=== PATIENT | male | born 1995 | race Caucasian/White ===

== ENCOUNTER 2016-02-27 15:33 | Emergency (ER) | payer OTHER ==
[~2016-02-27] VITALS: Ht 167.6 cm; Wt 105.0 kg
[2016-02-27 16:08] VITALS: BP 129/74; PULSE 87; RESP 20; TEMP 98.1; O2SAT 100
--- NOTE | 2016-02-27 16:36 | PD ---
HPI Chief Complaint: Psychiatric Symptoms Time Seen by Provider: 16:33 Travel History International Travel<30 days: No Contact w/Intl Traveler<30days: No Traveled to known affect area: No History of Present Illness HPI 20-year-old male that presents to the ED for evaluation of psych. Patient was [place] acted by the [facility] secondary to drug overdose. Apparently patient overdosed of her fentanyl which he uses recreationally with friend. Patient apparently at the previous facility was very agitated and will not collaborate with staff so he was Plaza acted for his safety. Patient had blood work and was deemed medically clear and he was discharged from the [facility] under a Plaza act and brought here by police. Patient did come here with paperwork from the [facility] to shows that he had blood work that was essentially unremarkable. Patient denies any psychiatric illness. Patient denies ever having any homicidal or suicidal ideation. Patient denies using fentanyl. Patient denies any drug abuse. Patient denies any alcohol abuse. No allergies to medication. No chest pain or shortness of breath. Other medical problems. [facility] Past Medical History Medical History: Denies Significant Hx Tetanus Vaccination: < 5 Years Past Surgical History Surgical History: No Previous Surgery Social History Alcohol Use: No Tobacco Use: Yes Substance Use: No Allergies-Medications (Allergen,Severity, Reaction): Coded Allergies: No Known Allergies (Unverified , 02/27/16) Reported Meds & Prescriptions Reported Meds & Active Scripts Active No Active Prescriptions or Reported Medications Review of Systems Except as stated in HPI: all other systems reviewed are Neg Physical Exam Narrative GENERAL: SKIN: Warm and dry. HEAD: Atraumatic. Normocephalic. EYES: Pupils equal and round. No scleral icterus. No injection or drainage. ENT: No nasal bleeding or discharge. Mucous membranes pink and moist. NECK: Trachea midline. No JVD. CARDIOVASCULAR: Regular rate and rhythm. No murmurs, S3, S4. RESPIRATORY: No accessory muscle use. Clear to auscultation. Breath sounds equal bilaterally. GASTROINTESTINAL: Abdomen soft, non-tender, nondistended. Hepatic and splenic margins not palpable. MUSCULOSKELETAL: Extremities without clubbing, cyanosis, or edema. No obvious deformities. NEUROLOGICAL: Awake and alert. No obvious cranial nerve deficits. Motor grossly within normal limits. Five out of 5 muscle strength in the arms and legs. Normal speech. PSYCHIATRIC: Appropriate mood and affect; insight and judgment normal. Data Data Last Documented VS Vital Signs Date Time Temp Pulse Resp B/P Pulse Ox O2 Delivery O2 Flow Rate FiO2 02/27/16 16:08 98.1 87 20 129/74 100 Orders Drug Screen, Random Urine (02/27/16 16:15) Psych Screen (02/27/16 16:15) MDM Medical Decision Making Medical Screen Exam Complete: Yes Emergency Medical Condition: Yes Medical Record Reviewed: Yes Differential Diagnosis Depression versus suicidal ideation versus anxiety versus adjustment disorder versus mood disorder versus bipolar disorder versus schizophrenia versus paranoid disorder versus psychosis versus substance abuse versus alcohol abuse versus alcohol induced psychosis versus homicidality addition versus cutting versus personality disorder Narrative Course 20-year-old male that presents to the ED for evaluation of psych. Patient was properly examined and was found to have signs and symptoms consistent what appears to be psychiatric illness. Patient was medically clear at a previous facility. Patient was medically cleared here. Patient is okay to be seen by psych. Mental health screening was discussed with the patient. Diagnosis Primary Impression: Substance abuse Scripts No Active Prescriptions or Reported Meds Florian Hinton Feb 27, 2016 16:36
[2016-02-27 17:20] LABS: AMPHETAMINE, URINE NEG (NEG); BARBITURATES, URINE NEG (NEG); COCAINE, URINE NEG (NEG)
[2016-02-27 17:53] VITALS: BP 132/84; PULSE 90; RESP 17; TEMP 98.8; O2SAT 95
[2016-02-28 02:23] VITALS: BP 126/74; PULSE 79; RESP 19; O2SAT 99
[2016-02-28 06:07] VITALS: BP 126/78; PULSE 82; RESP 18; O2SAT 98
--- NOTE | 2016-02-28 07:56 | MB ---
cc: SALOMON LAWLER MD DATE OF CONSULTATION: 02/28/2016 PHYSICIAN REQUESTING CONSULTATION Emergency Department REASON FOR CONSULTATION Plaza Act. HISTORY OF PRESENT ILLNESS Mr. Shipman is a 20-year-old male with no reported past psychiatric history who presents under a [place] Act from [facility] Department alleging that the officer responded to a possible overdose and found Ms. Shipman initially unresponsive. He finally awoke and a friend on the scene said that the patient had snorted fentanyl. It seems from the Plaza Act that the patient was primarily placed under the Plaza Act out of concerns for his physical safety secondary to the sequelae of opiate intoxication. Reviewing the electronic medical record, it appears this is the patient's first visit to [place]. Patient is seen and examined. Chart reviewed. Case discussed with nurse in the J-pod. On my examination this morning the patient is clinically sober. He reports that the fentanyl ingestion last night was purely recreational. He adamantly denies any suicidal intent in the ingestion. He denies any suicidal ideation, intent or plan at this time and says that he wants to live to make a lot of money to make his family and friends proud of him. He denies any suicidal ideation, intent or plan. He denies any homicidal ideation, intent or plan. He denies any issues with low mood or elevated mood and I can elicit no depressive or hypomanic / manic symptoms. He denies any audiovisual hallucinations. I can elicit no delusional beliefs including but not limited to paranoia, ideas of reference, thought insertion or withdrawal or grandiosity. The remainder of the psychiatric ROS is negative. The patient is requesting discharge from the psychiatric emergency room this morning. With the patient's permission, I did obtain collateral from the patient's roommate, Petey Padilla, at [phone]. Mr. Padilla confirms that he was at the scene last night and reports that the fentanyl ingestion was recreational. He has absolutely no concerns about the patient being suicidal. He has absolutely no concerns about the patient being a risk of harm to himself or others. PAST PSYCHIATRIC HISTORY The patient denies. He denies a history of psychiatric diagnosis. He denies a history of inpatient or outpatient psychiatric treatment. He denies a history of suicide attempts. He is on no psychotropic medications. FAMILY HISTORY The patient denies family history of serious mental illness, substance use disorder or suicide. CHEMICAL DEPENDENCY HISTORY The patient admits to occasional use of cannabis. He also has been using fentanyl "off and on for the last month." He says that he has maybe used it four times in total. He snorts it. He denies any history of IV drug use. Denies any use of benzos or alcohol or other drugs. SOCIAL HISTORY The patient reports that he lives with two roommates. He says that he has some college education and works in on[employer]. He is single and has no children. He denies any active legal issues. He denies a history of drug crime or violent crime. Denies any history. Denies any access to guns or firearms. Denies any catholic or spiritual beliefs. PAST MEDICAL HISTORY The patient denies any medical issues. REVIEW OF SYSTEMS No reported headache, vision or hearing changes, chest pain, shortness of breath, bowel or bladder issues. No other physical complaints. PHYSICAL EXAMINATION The physical examination was completed in the emergency room by the ER staff and the patient was medically cleared. On my examination today, the patient appears to be in no acute physical distress. No signs of opiate intoxication or withdrawal. In particular no lacrimation, rhinorrhea, piloerection, myosis or mydriasis or altered mental status. No other abnormal motor movements noted. Labs and vital signs reviewed. I note that the patient's urine toxicology is negative, but it is also true that not all of the opiates register in urine drug testing and in particular this screen notes that a negative result does not preclude the presence of a particular drug at a lower concentration than the cut point of dissection. MENTAL STATUS EXAMINATION The patient is in a hospital gown. He is well-groomed. He is awake and alert, and oriented x3. No evidence of delirium. No abnormal motor movements noted. Speech is within normal limits for rate, tone and volume. Language and fund of knowledge seem adequate and appropriate for age. Mood is fair and affect is euthymic, full and reactive. Thought process linear. No loosening of associations. No evident delusions. Denies audiovisual hallucinations. Denies suicidal or homicidal ideation. Insight and judgment are fair in general, but likely poor with respect to the substance use issues. ASSESSMENT AND PLAN 1. Opiate abuse, F11.10. This is a 20-year-old male with no psychiatric history who presents under a Plaza Act following what apparently was recreational fentanyl ingestion. On my examination this morning, the patient is clinically sober and denying any suicidal ideation, intent or plan. He denies any homicidal ideation. I can detect no unstable mood, anxiety or psychotic disorder in this patient at this time. I have obtained reassuring collateral from the patient's friend. Weighing the acute, chronic, and protective factors and based on the available evidence, I log cooker to a reasonable degree of medical certainty that the patient is at low imminent risk of harm to self or others from mental illness as defined under the Plaza Act and his level of function is adequate for outpatient care. I have lifted the Plaza Act. I have strongly recommended that the patient consider chemical dependency evaluation and treatment but he is unfortunately precontemplative with regards to his substance use. I have encouraged him to consider seeking the same in the future. We will provide the appropriate referrals. I have counseled the patient to return to the psychiatric emergency room for any concerning psychiatric symptoms. The patient is psychiatrically clear for discharge from the ED. Thank you very much for this consultation. Salomon HALEY /7:06 AM /7:37 AM KATIANA
== END 2016-02-28 09:46 | disposition home or self-care (01) ==
LOC: NEDAMB 15:33 → NEPJ 02-28 09:46
DX: F11.10 Opioid abuse, uncomplicated (principal)
CPT/HCPCS: 80307; 99284

== ENCOUNTER 2016-02-28 20:46 | Emergency (ER) | payer OTHER ==
[~2016-02-28] VITALS: Ht 167.6 cm; Wt 107.0 kg
[2016-02-28 20:48] VITALS: BP 127/83; PULSE 98; RESP 18; TEMP 98.9; O2SAT 91
[2016-02-28] MEDS ORDERED: SODIUM CHLOR 0.9% 1000 ML INJ 1,000 ML IV SCH (20:59)
[2016-02-28] MEDS ORDERED: SODIUM CHLORIDE 0.9% FLUSH 5 ML FLUSH IVF PRN (21:00)
[2016-02-28 21:41] LABS: AUTOMATED NEUTROPHIL # 6.8 TH/MM3 (1.8-7.7); BASOPHIL # 0.1 TH/MM3 (0-0.2); BASOPHIL % 0.5 % (0.0-2.0); EOSINOPHIL # 0.1 TH/MM3 (0-0.4); EOSINOPHIL % 1.3 % (0.0-4.0); HEMATOCRIT 43.6 % (39.0-51.0); HEMO FLAGS DIFF FINAL; LYMPH % 27.7 % (9.0-44.0); MEAN CELL VOLUME 84.3 FL (80.0-100.0); MEAN CORPUSCULAR HEMOGLOBIN 28.3 PG (27.0-34.0); MEAN CORPUSCULAR HGB CONC 33.6 % (32.0-36.0); MONO % 7.1 % (0.0-8.0); NEUT % 63.4 % (16.0-70.0); PLATELET COUNT 213 TH/MM3 (150-450); RED BLOOD COUNT 5.18 MIL/MM3 (4.50-5.90); RED CELL DISTRIBUTION WIDTH 14.5 % (11.6-17.2); WHITE BLOOD COUNT 10.7 TH/MM3 (4.0-11.0)
--- NOTE | 2016-02-28 22:04 | PD ---
HPI Chief Complaint: OD/ Ingestion Time Seen by Provider: 20:47 Travel History International Travel<30 days: No Contact w/Intl Traveler<30days: No Traveled to known affect area: No History of Present Illness HPI Patient is a 20-year-old male presents to emergency department today after intentional fentanyl overdose. Patient states that he was just trying to get high. EMS arrived on scene and gave him Narcan which completely return his level of consciousness. Patient awoke and stated he did not want to go to the hospital. Law enforcement involved in placement of a crack. 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 Apparently he released from [place] act today and is Plaza act was lifted. Patient denies suicidal or homicidal ideation today. He does present bilateral enforcement has Plaza act filled out by law enforcement. He has no complaints this time except for mild headache. Denies any other coingestions. PFSH Past Medical History Medical History: Denies Significant Hx Influenza Vaccination: No Past Surgical History Surgical History: No Previous Surgery Social History Alcohol Use: No Tobacco Use: Yes Substance Use: Yes (RECREATIONAL) Allergies-Medications (Allergen,Severity, Reaction): Coded Allergies: No Known Allergies (Unverified , 02/28/16) Reported Meds & Prescriptions Reported Meds & Active Scripts Active No Active Prescriptions or Reported Medications Review of Systems Except as stated in HPI: all other systems reviewed are Neg Physical Exam Narrative GENERAL: Well-developed well-nourished distress, overweight. SKIN: Warm and dry. HEAD: Atraumatic. Normocephalic. EYES: Pupils equal and round. No scleral icterus. No injection or drainage. ENT: No nasal bleeding or discharge. Mucous membranes pink and moist. NECK: Trachea midline. No JVD. CARDIOVASCULAR: Regular rate and rhythm. No murmur appreciated. RESPIRATORY: No accessory muscle use. Clear to auscultation. Breath sounds equal bilaterally. GASTROINTESTINAL: Abdomen soft, non-tender, nondistended. Hepatic and splenic margins not palpable. MUSCULOSKELETAL: No obvious deformities. No clubbing. No cyanosis. No edema. NEUROLOGICAL: Awake and alert oriented 3. No obvious cranial nerve deficits. Motor grossly within normal limits. Normal speech. PSYCHIATRIC: Appropriate mood and affect; insight and judgment normal. Data Data Last Documented VS Vital Signs Date Time Temp Pulse Resp B/P Pulse Ox O2 Delivery O2 Flow Rate FiO2 02/29/16 02:59 97.1 86 18 130/61 95 Room Air Orders Complete Blood Count With Diff (02/28/16 20:59) Comprehensive Metabolic Panel (02/28/16 20:59) Drug Screen, Random Urine (02/28/16 20:59) Urinalysis - C+S If Indicated (02/28/16 20:59) Blood Glucose (02/28/16 20:59) Ecg Monitoring (02/28/16 20:59) Iv Access Insert/Monitor (02/28/16 20:59) Oximetry (02/28/16 20:59) Sodium Chloride 0.9% Flush (Ns Flush) (02/28/16 21:00) Sodium Chlor 0.9% 1000 Ml Inj (Ns 1000 M (02/28/16 20:59) Electrocardiogram (02/28/16 ) Psych Screen (02/28/16 22:01) Alcohol (Ethanol) (02/28/16 22:01) Diet Regular Basic (02/29/16 Breakfast) Labs Laboratory Tests Test 02/28/16 21:05 White Blood Count 10.7 TH/MM3 Red Blood Count 5.18 MIL/MM3 Hemoglobin 14.6 GM/DL Hematocrit 43.6 % Mean Corpuscular Volume 84.3 FL Mean Corpuscular Hemoglobin 28.3 PG Mean Corpuscular Hemoglobin 33.6 % Concent Red Cell Distribution Width 14.5 % Platelet Count 213 TH/MM3 Mean Platelet Volume 10.5 FL Neutrophils (%) (Auto) 63.4 % Lymphocytes (%) (Auto) 27.7 % Monocytes (%) (Auto) 7.1 % Eosinophils (%) (Auto) 1.3 % Basophils (%) (Auto) 0.5 % Neutrophils # (Auto) 6.8 TH/MM3 Lymphocytes # (Auto) 3.0 TH/MM3 Monocytes # (Auto) 0.8 TH/MM3 Eosinophils # (Auto) 0.1 TH/MM3 Basophils # (Auto) 0.1 TH/MM3 CBC Comment DIFF FINAL Differential Comment Sodium Level 138 MEQ/L Potassium Level 3.6 MEQ/L Chloride Level 101 MEQ/L Carbon Dioxide Level 28.5 MEQ/L Anion Gap 9 MEQ/L Blood Urea Nitrogen 11 MG/DL Creatinine 1.12 MG/DL Estimat Glomerular Filtration 84 ML/MIN Rate Random Glucose 131 MG/DL Calcium Level 8.7 MG/DL Total Bilirubin 0.3 MG/DL Aspartate Amino Transf 58 U/L (AST/SGOT) Alanine Aminotransferase 127 U/L (ALT/SGPT) Alkaline Phosphatase 110 U/L Total Protein 7.8 GM/DL Albumin 3.9 GM/DL Ethyl Alcohol Level LESS THAN 3 MG/DL MDM Medical Decision Making Medical Screen Exam Complete: Yes Emergency Medical Condition: Yes Differential Diagnosis Benadryl overdose, suicidal ideation, substance abuse, Narrative Course Patient is now 2-1/2 half-lives out of Narcan duration, he has had no somnolence and no respiratory depression. Remains GCS 15. He is medically stable for psychiatric screening and disposition. If deemed stable by the psychiatrist he can be discharged by psychiatry. He appears well in no apparent distress. Diagnosis Primary Impression: Intentional fentanyl overdose Qualified Code: T40.4X2A - Intentional fentanyl overdose, initial encounter Scripts No Active Prescriptions or Reported Meds Condition: Stable Rigo Delcid MD Feb 28, 2016 22:04
[2016-02-28 22:11] LABS: ALKALINE PHOSPHATASE 110 U/L (45-117); ALT (GPT) 127 U/L (9-52); ANION GAP 9 MEQ/L (5-15); AST (GOT) 58 U/L (15-39); BICARBONATE 28.5 MEQ/L (21.0-32.0); BLOOD UREA NITROGEN 11 MG/DL (7-18); CHLORIDE 101 MEQ/L (98-107); GLOMERULAR FILTRATION RATE 84 ML/MIN (>89); POTASSIUM 3.6 MEQ/L (3.5-5.1); SODIUM (NA) 138 MEQ/L (136-145); TOTAL BILIRUBIN ADULT 0.3 MG/DL (0.2-1.0)
[2016-02-28 23:06] VITALS: BP 127/69; PULSE 100; RESP 16; O2SAT 92
[2016-02-28 23:23] VITALS: BP 121/72; PULSE 92; RESP 19; TEMP 98.7; O2SAT 100
[2016-02-29 02:59] VITALS: BP 130/61; PULSE 86; RESP 18; TEMP 97.1; O2SAT 95
[2016-02-29 06:19] VITALS: BP 104/56; PULSE 77; RESP 19; O2SAT 100
--- NOTE | 2016-02-29 08:40 | MB ---
cc: SALOMON LAWLER MD DATE OF CONSULTATION: 02/29/2016 PHYSICIAN REQUESTING CONSULTATION: Emergency department. REASON FOR CONSULTATION: Plaza Act HISTORY OF PRESENT ILLNESS: Mr. Shipman is a 20 year-old male with a history of opiate dependence who presents under a Plaza Act from [facility] Department alleging that the patient overdosed on fentanyl and required Narcan in the field. I saw the patient yesterday for a similar presentation and lifted the Plaza ACT as this was primarily a substance use issue. Electronic medical record reviewed. The patient seen and examined. Case discussed with nurse in the J pod. On my examination this morning, the patient reports that he comes in because of "dumb decisions". "We had a little bit left that we thought we could finish and up. I was using a little bit every 2 hours." He denies that his overdose on fentanyl was suicidal in nature. He denies any suicidal ideation or homicidal ideation at this time. He denies any audiovisual hallucinations. No delusions. No evident mood issues. The remainder of the psychiatric ROS is negative. Past psychiatric, family, chemical dependency and social history were obtained yesterday and are unchanged today. His past medical history was likewise obtained yesterday. REVIEW OF SYSTEMS No reported physical complaints today. PHYSICAL EXAMINATION Physical examination was completed in the emergency room by the ER staff and the patient was medically cleared. On my examination today, the patient is in no acute physical distress. No abnormal motor movements noted. No signs of ongoing opiate intoxication or withdrawal. MENTAL STATUS EXAM The patient is in hospital gown. He is fairly well-groomed. He is awake, alert and oriented x3. No abnormal motor movements noted. Speech is within normal limits for rate, tone and volume. Mood is fair and affect is blunted. Thought process linear. No loosening of associations. No evident delusions. Denies AVH. Denies SI or HI. Insight and judgment are poor secondary to substance use. ASSESSMENT/PLAN Opiate dependence, S1 1.20 This is a 20-year-old male with a history of opiate dependence who presents again under a Plaza ACT following a fentanyl overdose. I saw him yesterday for the same thing. The patient has clearly lost control of his opiate use and requires urgent treatment for this. I will lift the Plaza ACT and place the patient under a physician certificate for emergency admission to a chemical dependency treatment facility. The patient will be retained in the J pod under the physician certificate until a bed at an addiction receiving facility can be found. I will provide him in the meantime with medications for the management of any opiate withdrawal. Thank you very much for this consultation. Salomon Rowland /7:55 AM /8:35 AM MTDConner
[2016-02-29] MEDS ORDERED: ONDANSETRON ODT 4 MG TAB PO PRN (09:30)
[2016-02-29] MEDS ORDERED: cloNIDine HCL 0.1 MG TAB PO PRN (10:00)
[2016-02-29] MEDS ORDERED: ACETAMINOPHEN 325 MG TAB PO PRN (10:00)
[2016-02-29] MEDS ORDERED: LOPERAMIDE HCL 2 MG CAP PO PRN (10:00)
[2016-02-29 10:15] VITALS: BP 109/58; PULSE 83; RESP 18
--- NOTE | 2016-02-29 14:13 | EKG ---
Date Performed: 02/28/2016 Time Performed: 20:54:10 PTAGE: 20 years EKG: Sinus rhythm NONSPECIFIC T-WAVE ABNORMALITY ABNORMAL ECG NO PREVIOUS TRACING DOCTOR: Cruz Hurst Interpretating Date/Time 02/29/2016 14:10:42
== END 2016-02-29 13:00 ==
LOC: NEPC 20:46 → NEPJ 02-29 13:00
DX: T40.4X2A Poisoning by other synthetic narcotics, intentional self-harm, initial encounter (principal); F11.20 Opioid dependence, uncomplicated; R51 Headache; R94.31 Abnormal electrocardiogram [ECG] [EKG]
CPT/HCPCS: 80053; 80320; 85025; 93005; 96360; 99284; J7030